=== PATIENT | male | born 1970 | race Caucasian/White ===

== ENCOUNTER → 2018-07-12 | Outpatient (CLI) | payer OTHER ==
--- NOTE | 2018-07-12 11:22 | KCIC ---
MRI Cervical Spine Without Contrast History: Chronic neck pain, left shoulder pain, left upper extremity numbness Technique: Multiplanar, multi sequential noncontrast MR imaging was performed of the cervical spine. Comparison: None Findings: There is some motion degradation. Cervical cord caliber is within normal limits without significant focal signal abnormality. Cervical vertebral body stature is maintained. AP alignment is within normal limits. Intervertebral disc spaces are overall adequate. There is no significant marrow edema. There is mild mucosal thickening of the visualized sphenoid sinus. C2-C3: Neural foramina and spinal canal are adequate. C3-C4: There is negligible disc osteophyte complex and bulge. Spinal canal is adequate. There is bilateral facet hypertrophic change. There is left greater than right uncovertebral degenerative change. There is [id number] narrowing of the left neural foramen, right neural foramen minimally narrowed. C4-C5: There is bilateral facet degenerative change. There is negligible disc osteophyte complex. Neural foramina and spinal canal are adequate. C5-C6: There is bilateral facet degenerative change. Neural foramina and spinal canal are adequate. C6-C7: Neural foramina and spinal canal are adequate. C7-T1: Spinal canal and neural foramina are adequate. Impression: 1. There is no cervical spinal stenosis. Facet and uncovertebral degenerative change contributes to [id number] left and mild right C3-4 neural foramina compromise. There is mild spondylosis C3-4 and C4-C5. Electronically signed by: Lance Beckman MD (07/12/2018 11:19 AM) [id number]
--- NOTE | 2018-07-12 12:22 | KCIC ---
MR of the left shoulder HISTORY: Chronic left shoulder pain. Left upper extremity numbness. TECHNIQUE: Routine multiplanar sequences are obtained. FINDINGS: Acromioclavicular joint is intact. Mild rotator cuff tendinosis signal, without evidence of a rotator cuff tear. Trace subdeltoid bursal fluid. No significant glenohumeral joint effusion. Labrum exam somewhat limited by motion but no definite evidence of acute tear or detachment. No acute articular cartilage defect. Biceps tendon intact. Mild cystic changes at the greater tuberosity. No acute fracture or aggressive bone destruction. IMPRESSION: 1. Mild rotator cuff tendinosis without tear. 2. No definite labral tear but exam slightly limited by motion. Electronically signed by: Natan Esparza MD (07/12/2018 12:18 PM) [facility]
== END | disposition home or self-care (01) ==
LOC: KCIC MRI 09:33
PROVIDERS: ATTEND Family Medicine
DX: M47.892 Other spondylosis, cervical region (principal); M48.02 Spinal stenosis, cervical region; M46.02 Spinal enthesopathy, cervical region
CPT/HCPCS: 72141; 73221